=== PATIENT | male | born 1955 | race Caucasian/White ===

== ENCOUNTER → 2018-09-04 07:59 | Outpatient (CLI) | payer BC, SELFPAY ==
--- NOTE | 2018-09-04 08:01 | XR_ITS ---
XR chest 2V HISTORY: ITS.REASON: cough ORDERING PHYSICIAN: Cristian Oliva PATIENT AGE: 62 years COMPARISON: None FINDINGS: The cardiomediastinal silhouette and pulmonary vascularity are within normal limits. Increased markings in the lingula and right lower lobe consistent with atelectasis and/or infiltrate Kyphosis of the thoracic spine with mild wedging involving T8, T9, and T10 which appears chronic.. IMPRESSION: Atelectasis or infiltrate within the lingula and right lower lobe
== END ==
PROVIDERS: PCP Nurse Practitioner Family; Visit Provider Nurse Practitioner Family
DX: R05 Cough (principal)
CPT/HCPCS: 71046

== ENCOUNTER 2022-09-01 09:11 | Emergency (ER) | payer MEDICARE, SELFPAY ==
--- NOTE | 2022-09-01 09:21 | EXP.UTC ---
Discharge Plan Disposition Patient Disposition: Home, Self-Care Condition: Good Prescriptions Prescriptions: New benzonatate [benzonatate] 100 mg capsule 100 mg PO TIDP PRN (Reason: Cough) Qty: 30 0RF azithromycin [Zithromax] 250 mg tablet 250 mg PO UD DOSE PK Qty: 6 0RF Rx Instructions: Take two (2) tablets today, then one (1) tablet days #2 thru #5 methylprednisolone 4 mg Tablets,Dose Pack 4 mg PO DIRECTED Qty: 21 0RF No Action losartan 25 mg tablet 12.5 mg PO ONCE meloxicam 7.5 mg tablet 7.5 mg PO ONCE timolol 0.5 % drops 1 drp OPHTHALMIC BID latanoprost 0.005 % drops 1 drp OPHTHALMIC ONCE levocetirizine 5 mg tablet 5 mg PO QHS tamsulosin [Flomax] 0.4 mg capsule 0.4 mg PO DAILY montelukast 10 mg tablet 10 mg PO QPM nystatin-triamcinolone 100,000-0.1 unit/g-% cream 1 applic TOPICAL BID Referrals Follow up/Referrals: Triston Avila [Primary Care Provider] - See instructions Activity Restrictions/Add. Instructions Additional Instructions/Restrictions: Drink plenty of fluids. Take tylenol or ibuprofen for pain or fever. Take the medications as directed. Follow up with your regular doctor. GO TO THE ER FOR ANY WORSENING SYMPTOMS Clinical Impressions Clinical Impression: Sinusitis, Bronchitis, Acute viral syndrome Instructions Patient Instructions: DI for Sinusitis, DI for Viral Syndrome Discharge ED Provider: Aubrey Bell [facility] [place] General Stated complaint: Flu exposure, cough, sinus headache, fever Time Seen by Provider: 09/01/22 09:21 History of Present Illness Provider Complaint: He states that for the past 2 days he has had sinus congestion, sinus drainage, cough, fever, and body aches. Related Data Home Medications Medication Instructions Recorded Confirmed latanoprost 0.005 % eye drops 1 drp ophthalmic (eye) ONCE 12/13/17 04/12/19 levocetirizine 5 mg tablet 5 mg PO QHS 12/13/17 04/12/19 losartan 25 mg tablet 12.5 mg PO ONCE 12/13/17 04/12/19 meloxicam 7.5 mg tablet 7.5 mg PO ONCE 12/13/17 04/12/19 timolol 0.5 % eye drops 1 drp ophthalmic (eye) BID 12/13/17 04/12/19 montelukast 10 mg tablet 10 mg PO QPM 09/03/18 04/12/19 tamsulosin 0.4 mg capsule (Flomax) 0.4 mg PO DAILY 09/03/18 04/12/19 nystatin-triamcinolone 100,000 1 applic topical BID 04/12/19 04/12/19 unit/g-0.1 % topical cream Previous Rx's Medication Instructions Recorded azithromycin 250 mg tablet 250 mg PO UD DOSE PK #6 tabs 09/01/22 (Zithromax) benzonatate 100 mg capsule 100 mg PO TIDP PRN Cough #30 caps 09/01/22 methylprednisolone 4 mg tablets in 4 mg PO DIRECTED #21 tabs 09/01/22 a dose pack Allergies Allergy/AdvReac Type Severity Reaction Status Date / Time No Known Allergies Allergy Verified 09/01/22 09:41 [facility] Disclaimer: The information contained in this section may have been updated after the patient was seen, as this information can be updated by other users. Social History Smoking Status: Never smoker alcohol intake: never substance use type: denies use current occupational status: employed Travel in the last 8 weeks: Inside the [place] household members: family housing: house ROS Obtained: Yes All systems reviewed & no additional complaints except as documented Constitutional Constitutional: Reports chills and Reports fever(s) Eyes Eyes: Denies eye discharge ENT Ears, Nose, Mouth, and Throat: Reports as per HPI Cardiovascular Cardiovascular: Denies chest pain Respiratory Respiratory: Denies shortness of breath, Reports chest congestion, Reports cough, Denies stridor and Denies wheezing Gastrointestinal Gastrointestingal: Reports nausea; Denies abdominal pain, constipation, cramping, diarrhea or vomiting Musculoskeletal Musculoskeletal: Denies arthralgias Integumentary/Breasts Skin/Breast: Denies rash Chey
[2022-09-01 09:39] VITALS: BP 114/73; PULSE 76; RESP 16; TEMP 37.4; O2SAT 96; BMI 38.3
[2022-09-01 09:47] LABS: UTC Influenza A Antigen Negative (Negative); UTC Influenza B Antigen Negative (Negative)
[2022-09-01 10:01] VITALS: BP 114/73; PULSE 76; RESP 16; TEMP 37.4
== END 2022-09-01 10:07 | disposition home or self-care (01) ==
PROVIDERS: Emergency Provider Nurse Practitioner Family; PCP Family Medicine
DX: J40 Bronchitis, not specified as acute or chronic (principal); J32.9 Chronic sinusitis, unspecified
CPT/HCPCS: 87804; 99212; C9803; G0463; U0003; U0005

== ENCOUNTER 2023-02-20 15:44 | Emergency (ER) | payer MEDICARE, BC, SELFPAY ==
[2023-02-20 15:55] VITALS: BP 130/79; PULSE 80; RESP 18; TEMP 36.8; O2SAT 98; BMI 38.9
--- NOTE | 2023-02-20 16:27 | EXP.UTC ---
Discharge Plan Disposition Patient Disposition: Home, Self-Care Condition: Good Prescriptions Prescriptions: New triamcinolone acetonide 0.5 % cream 1 applic topical BID Qty: 15 0RF No Action losartan 25 mg tablet 12.5 mg PO ONCE meloxicam 7.5 mg tablet 7.5 mg PO ONCE timolol 0.5 % drops 1 drp OPHTHALMIC BID latanoprost 0.005 % drops 1 drp OPHTHALMIC ONCE levocetirizine 5 mg tablet 5 mg PO QHS tamsulosin [Flomax] 0.4 mg capsule 0.4 mg PO DAILY montelukast 10 mg tablet 10 mg PO QPM nystatin-triamcinolone 100,000-0.1 unit/g-% cream 1 applic TOPICAL BID benzonatate [benzonatate] 100 mg capsule 100 mg PO TIDP PRN (Reason: Cough) Qty: 30 0RF azithromycin [Zithromax] 250 mg tablet 250 mg PO UD DOSE PK Qty: 6 0RF Rx Instructions: Take two (2) tablets today, then one (1) tablet days #2 thru #5 methylprednisolone 4 mg Tablets,Dose Pack 4 mg PO DIRECTED Qty: 21 0RF Referrals Follow up/Referrals: Triston Avila [Primary Care Provider] - See instructions Clinical Impressions Clinical Impression: Contact dermatitis due to poison nayeli Instructions Patient Instructions: DI for Poison Nayeli Allergy Discharge ED Provider: Hazel ([facility])[place] [facility] [place] General Stated complaint: rash on lower legs and arms Mode of Arrival: Ambulatory Source of Information: Patient Limitations: No Limitations Time Seen by Provider: 02/20/23 16:27 Description of Symptoms (Recalled from Triage Doc. by RN): PATIENT C/O POISON NAYELI ALL OVER X 3 DAYS HEENT Symptoms (Recalled from RN notes): No Resp Symptoms (Recalled from RN notes): No Skin Symptoms (Recalled from RN notes): Yes MS Symptoms (Recalled from RN notes): No Functional Status (Recalled from RN notes): WNL History of Present Illness Provider Complaint: 67 yr old male presents for poison nayeli on jone lower legs,neck and arms for 3 days Related Data Home Medications Medication Instructions Recorded Confirmed latanoprost 0.005 % eye drops 1 drp ophthalmic (eye) ONCE 12/13/17 04/12/19 levocetirizine 5 mg tablet 5 mg PO QHS 12/13/17 04/12/19 losartan 25 mg tablet 12.5 mg PO ONCE 12/13/17 04/12/19 meloxicam 7.5 mg tablet 7.5 mg PO ONCE 12/13/17 04/12/19 timolol 0.5 % eye drops 1 drp ophthalmic (eye) BID 12/13/17 04/12/19 montelukast 10 mg tablet 10 mg PO QPM 09/03/18 04/12/19 tamsulosin 0.4 mg capsule (Flomax) 0.4 mg PO DAILY 09/03/18 04/12/19 nystatin-triamcinolone 100,000 1 applic topical BID 04/12/19 04/12/19 unit/g-0.1 % topical cream Previous Rx's Medication Instructions Recorded azithromycin 250 mg tablet 250 mg PO UD DOSE PK #6 tabs 09/01/22 (Zithromax) benzonatate 100 mg capsule 100 mg PO TIDP PRN Cough #30 caps 09/01/22 methylprednisolone 4 mg tablets in 4 mg PO DIRECTED #21 tabs 09/01/22 a dose pack triamcinolone acetonide 0.5 % 1 applic topical BID #15 grams 02/20/23 topical cream Allergies Allergy/AdvReac Type Severity Reaction Status Date / Time No Known Allergies Allergy Verified 09/01/22 09:41 Worker's Comp Is this a Worker's Comp case?: No [facility] Disclaimer: The information contained in this section may have been updated after the patient was seen, as this information can be updated by other users. 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 , [place] [employer]) Hypertension Surgical History , [place] [employer]) History of tonsillectomy Total knee replacement status Social History , [place] [employer]) Smoking Status: Never smoker alcohol intake: never substance use type: denies use current occupational status: employed Travel in the last 8 weeks: [place] the [place]) household members: family housing: house ROS Obtained: Yes All systems reviewed & no additional complaints except as documented Constitutional Constitution
[2023-02-20 16:40] VITALS: BP 130/79; PULSE 80; RESP 18; TEMP 36.8; O2SAT 98
== END 2023-02-20 16:45 | disposition home or self-care (01) ==
PROVIDERS: Emergency Provider Nurse Practitioner Family; PCP Family Medicine
DX: L23.7 Allergic contact dermatitis due to plants, except food (principal); I10 Essential (primary) hypertension; W60.XXXA Contact with nonvenomous plant thorns and spines and sharp leaves, initial encounter
CPT/HCPCS: 96372; 99212; 99214; G0463

== ENCOUNTER 2023-08-02 08:18 | Emergency (ER) | payer MEDICARE, BC, SELFPAY ==
[2023-08-02 08:35] VITALS: BP 149/81; PULSE 76; RESP 19; TEMP 36.7; O2SAT 96; BMI 36.4
[2023-08-02 08:58] VITALS: BP 149/81; PULSE 76; RESP 19; TEMP 36.7; O2SAT 96
--- NOTE | 2023-08-02 09:11 | EXP.UTC ---
Discharge Plan Disposition Patient Disposition: Home, Self-Care Condition: Good Prescriptions Prescriptions: New amoxicillin-pot clavulanate 875-125 mg Tablet 1 tab PO Q12H Qty: 20 0RF guaifenesin [Mucinex] 600 mg tablet extended release 12hr 600 mg PO BID PRN (Reason: cough/congestion) Qty: 20 0RF No Action meloxicam 7.5 mg tablet 7.5 mg PO ONCE timolol 0.5 % drops 1 drp OPHTHALMIC BID latanoprost 0.005 % drops 1 drp OPHTHALMIC ONCE levocetirizine 5 mg tablet 5 mg PO QHS tamsulosin [Flomax] 0.4 mg capsule 0.4 mg PO DAILY telmisartan-hydrochlorothiazid 80-25 mg tablet 1 tab PO DAILY Patient Comments: TAKE 1 TABLET BY MOUTH ONCE DAILY ropinirole 2 mg tablet extended release 24 hr 2 mg PO HS Patient Comments: TAKE 2 TABLETS BY MOUTH AT BEDTIME FOR 7 DAYS, THEN 3 AT BEDTIME FOR 7 DAYS, THEN 4 AT BEDTIME Referrals Follow up/Referrals: Triston Avila [Primary Care Provider] - See instructions Activity Restrictions/Add. Instructions Additional Instructions/Restrictions: *Monitor Temp, Over the counter Motrin or Tylenol as directed/as needed Tylenol every 4 hours and Motrin every 6 hours (as long as your family doctor has told you that you can take it) for fever or pain. and straight to ER if unable to lower temp less than 101.0 after medication given *Warm salt water gargles may help to soothe the throat *Throat Lozenges? *Warm fluids like tea with honey may help to soothe the throat? *Sleep elevated *Humidifier/Vaporizer Follow up IMMEDIATELY for new or worsening symptoms or no Noticeable improvement over the next 48-72 hours. 911 for difficulty breathing or swallowing Clinical Impressions Clinical Impression: Sinusitis Qualifiers: Sinusitis location: unspecified location Chronicity: unspecified Qualified Code(s): J32.9 - Chronic sinusitis, unspecified Instructions Patient Instructions: DI for Sinusitis, Sinusitis Discharge ED Provider: Zuleyka Pack [facility] General Stated complaint: POSSIBLE SINUS INFECTION Mode of Arrival: Ambulatory Source of Information: Patient Limitations: No Limitations Time Seen by Provider: 08/02/23 09:18 Description of Symptoms (Recalled from Triage Doc. by RN): PATIENT C/O COUGH X 3 WEEKS, SINUS DRAINAGE AND SORE THROAT X 2-3 DAYS HEENT Symptoms (Recalled from RN notes): Yes Resp Symptoms (Recalled from RN notes): Yes Skin Symptoms (Recalled from RN notes): No MS Symptoms (Recalled from RN notes): No Functional Status (Recalled from RN notes): WNL History of Present Illness Provider Complaint: Patient states that he has been having a dry cough with nasal drainage on and off for about 3 weeks but now his mucous has got thick and yellowish green color feels like he may have a bad sinus infection Related Data Home Medications Medication Instructions Recorded Confirmed latanoprost 0.005 % eye drops 1 drp ophthalmic (eye) ONCE 12/13/17 08/02/23 levocetirizine 5 mg tablet 5 mg PO QHS 12/13/17 08/02/23 meloxicam 7.5 mg tablet 7.5 mg PO ONCE 12/13/17 08/02/23 timolol 0.5 % eye drops 1 drp ophthalmic (eye) BID 12/13/17 08/02/23 tamsulosin 0.4 mg capsule (Flomax) 0.4 mg PO DAILY 09/03/18 08/02/23 ropinirole 2 mg tablet,extended 2 mg PO HS 08/02/23 08/02/23 release 24 hr telmisartan 80 1 tab PO DAILY 08/02/23 08/02/23 mg-hydrochlorothiazide 25 mg tablet Previous Rx's Medication Instructions Recorded amoxicillin 875 mg-potassium 1 tab PO Q12H #20 tabs 08/02/23 clavulanate 125 mg tablet guaifenesin 600 mg tablet, 600 mg PO BID PRN cough/congestion 08/02/23 extended release 12 hr (Mucinex) #20 tabs Allergies Allergy/AdvReac Type Severity Reaction Status Date / Time No Known Allergies Allergy Verified 09/01/22 09:41 Worker's Comp Is this a Worker's Comp case?: No [facility] Disclaimer: The information contained in this section may have been updated
== END 2023-08-02 09:35 | disposition home or self-care (01) ==
PROVIDERS: Emergency Provider Nurse Practitioner; PCP Family Medicine
DX: J01.90 Acute sinusitis, unspecified (principal); R05.9 Cough, unspecified; R09.81 Nasal congestion; I10 Essential (primary) hypertension
CPT/HCPCS: 99212; 99214; G0463

== ENCOUNTER 2023-11-10 08:44 | Emergency (ER) | payer MEDICARE, BC, SELFPAY ==
[2023-11-10 09:00] VITALS: BP 134/79; PULSE 65; RESP 18; TEMP 36.9; O2SAT 96; BMI 35.5
[2023-11-10 09:16] VITALS: BMI 35.5
--- NOTE | 2023-11-10 09:18 | ED_ITS ---
Discharge Plan Disposition Patient Disposition: Home, Self-Care Condition: Good Prescriptions Prescriptions: New methylprednisolone 4 mg Tablets,Dose Pack 4 mg PO DIRECTED 6 Days Qty: 21 0RF Rx Instructions: Take 1 pack as directed for 6 days azithromycin [Zithromax] 250 mg tablet 250 mg PO UD DOSE PK Qty: 6 0RF Rx Instructions: Take two (2) tablets today, then one (1) tablet days #2 thru #5 benzonatate [benzonatate] 100 mg capsule 100 mg PO TIDP PRN (Reason: Cough) Qty: 30 0RF guaifenesin [Mucinex] 600 mg tablet extended release 12hr 600 - 1,200 mg PO BIDP PRN (Reason: Congestion) Qty: 30 0RF No Action meloxicam 7.5 mg tablet 7.5 mg PO ONCE latanoprost 0.005 % drops 1 drp OPHTHALMIC ONCE levocetirizine 5 mg tablet 5 mg PO QHS tamsulosin [Flomax] 0.4 mg capsule 0.4 mg PO DAILY telmisartan-hydrochlorothiazid 80-25 mg tablet 1 tab PO DAILY Patient Comments: TAKE 1 TABLET BY MOUTH ONCE DAILY ropinirole 2 mg tablet extended release 24 hr 8 mg PO HS Patient Comments: TAKE 2 TABLETS BY MOUTH AT BEDTIME FOR 7 DAYS, THEN 3 AT BEDTIME FOR 7 DAYS, THEN 4 AT BEDTIME Referrals Follow up/Referrals: Triston Avila [Primary Care Provider] - See instructions Activity Restrictions/Add. Instructions Additional Instructions/Restrictions: Drink plenty of fluids. Take tylenol or ibuprofen for pain or fever. Take the medications as directed. Follow up with your regular doctor. GO TO THE ER FOR ANY WORSENING SYMPTOMS We will call you with the results of your rapid covid-19/influenza swab with it's complete in a couple of hours. Clinical Impressions Clinical Impression: Sinusitis, Acute viral syndrome, Exposure to 2019 novel coronavirus Instructions Patient Instructions: Sinusitis, DI for Sinusitis Discharge ED Provider: Aubrey Bell [facility] [place] General Stated complaint: congestion, sore throat Time Seen by Provider: 11/10/23 09:18 History of Present Illness Provider Complaint: He states that for the past 2 days he has had sinus congestion, cough, sore throat, and malaise. Related Data Home Medications Medication Instructions Recorded Confirmed latanoprost 0.005 % eye drops 1 drp ophthalmic (eye) ONCE 12/13/17 08/02/23 levocetirizine 5 mg tablet 5 mg PO QHS 12/13/17 08/02/23 meloxicam 7.5 mg tablet 7.5 mg PO ONCE 12/13/17 08/02/23 tamsulosin 0.4 mg capsule (Flomax) 0.4 mg PO DAILY 09/03/18 08/02/23 ropinirole 2 mg tablet,extended 8 mg PO HS 08/02/23 08/02/23 release 24 hr telmisartan 80 1 tab PO DAILY 08/02/23 08/02/23 mg-hydrochlorothiazide 25 mg tablet Previous Rx's Medication Instructions Recorded azithromycin 250 mg tablet 250 mg PO UD DOSE PK #6 tabs 11/10/23 (Zithromax) benzonatate 100 mg capsule 100 mg PO TIDP PRN Cough #30 caps 11/10/23 guaifenesin 600 mg tablet, 600 - 1,200 mg PO BIDP PRN 11/10/23 extended release 12 hr (Mucinex) Congestion #30 tabs methylprednisolone 4 mg tablets in 4 mg PO DIRECTED 6 days #21 tabs 11/10/23 a dose pack Allergies Allergy/AdvReac Type Severity Reaction Status Date / Time No Known Allergies Allergy Verified 11/10/23 09:20 [facility] Disclaimer: The information contained in this section may have been updated after the patient was seen, as this information can be updated by other users. 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 (Reviewed 02/20/23 @ 16:32 by Cristian Oliva ([facility] [place] [place]) Hypertension Surgical History (Reviewed 02/20/23 @ 16:32 by Cristian Oliva ([facility] [place]) History of tonsillectomy Total knee replacement status Social History Smoking Status: Never smoker alcohol intake: never substance use type: denies use current occupational status: employed Travel in the last 8 weeks: [place] the [place] ([place]) household members: family housing: house ROS Obtained: Yes All systems reviewed & no additional complaints except as documented Constitutional Constitutional: Reports poor appetite Eyes Eyes: Reports system reviewed and no additional complaints, except as documented ENT Ears, Nose, Mouth, and Throat: Reports as per HPI Cardiovascular Cardiovascular: Reports system reviewed and no additional complaints, except as documented and Denies chest pain Respiratory Respiratory: Denies shortness of breath, Denies chest congestion, Reports cough, Denies stridor and Denies wheezing Gastrointestinal Gastrointestingal: Reports system reviewed and no additional complaints, except as documented; Denies abdominal pain, diarrhea or vomiting Musculoskeletal Musculoskeletal: Reports system reviewed and no additional complaints, except as documented and Denies arthralgias Integumentary/Breasts Skin/Breast: Reports system reviewed and no additional complaints, except as d ocumented and Denies rash Neurologic Neurologic: Denies paresthesias Allergic/Immunologic Allergic/Immunologic: Denies wheezing Physical Exam General General appearance: alert and in no apparent distress Eye Eye exam: Present normal appearance, PERRL and EOMI ENT ENT exam: Present mucous membranes moist and normal external ear exam Expanded ENT Exam External ear exam: Present normal external inspection TM/Canal exam: Bilateral TM: erythema and bulging Nose exam: Absent sinus tenderness Nasal speculum exam: Bilateral: normal Mouth exam: Present normal external inspection; Absent drooling Teeth exam: Present normal inspection Throat exam: Present tonsillar erythema and tonsillomegaly Neck Neck exam: Present normal inspection, full ROM and trachea midline; Absent tenderness, lymphadenopathy or thyromegaly Chest Chest inspection: Present normal inspection and symmetric chest wall rise; Absent tenderness or rash Respiratory Respiratory exam: Present normal lung sounds bilaterally; Absent respiratory distress, wheezes, stridor or accessory muscle use Cardiovascular Cardiovascular exam: Present regular rate, normal rhythm and normal heart sounds Abdominal Exam Abdominal exam: Present soft; Absent distention, tenderness, guarding, rebound or rigidity Extremities Exam Extremities exam: Present normal inspection, full ROM and normal capillary refill; Absent tenderness or calf tenderness Back Exam Back exam: Present normal inspection and full ROM; Absent tenderness Neurological Exam Neurological exam: Present alert and oriented X3 Psychiatric Psychiatric exam: Present normal affect and normal mood Skin Skin exam: Present warm, dry, intact and normal color Lymphatic Lymphatic Findings: no adenopathy Medical Decision Making Medical Records Medical records reviewed: No I reviewed the patient's medical records. Michele Inquiry Pt receiving controlled substance: No Lab Data Lab results reviewed: Yes I reviewed the patient's lab results. Orders (Tests/Meds): ORDERS Category Date Time Status Rapid PCR Covid and Flu A/B Stat Lab 11/10/23 09:16 Ordered
[2023-11-10 09:27] LABS: Coronavirus 19, PCR Not Detected (NotDetected); Influenza A, PCR Not Detected (NotDetected); Influenza B, PCR Not Detected (NotDetected)
[2023-11-10 09:34] LABS: UTC Influenza A Antigen Negative (Negative); UTC Strep Screen (Rapid) Negative (Negative)
[2023-11-10 09:35] LABS: UTC Influenza B Antigen Negative (Negative)
[2023-11-10 09:58] VITALS: BP 134/79; PULSE 65; RESP 18; TEMP 36.9; O2SAT 96
== END 2023-11-10 10:03 | disposition home or self-care (01) ==
PROVIDERS: Emergency Provider Nurse Practitioner Family; PCP Family Medicine
DX: J01.90 Acute sinusitis, unspecified (principal); R05.9 Cough, unspecified; R07.0 Pain in throat; R09.81 Nasal congestion; R53.81 Other malaise; Z20.822 Contact with and (suspected) exposure to COVID-19; I10 Essential (primary) hypertension
CPT/HCPCS: 87636; 87804; 87880; 99212; 99214; G0463

== ENCOUNTER 2024-04-17 20:34 | Emergency (ER) | payer MEDICARE, BC, SELFPAY ==
[2024-04-17 20:36] VITALS: BP 140/70; PULSE 68; RESP 16; TEMP 36.6; O2SAT 97; BMI 36.9
--- NOTE | 2024-04-17 20:53 | ED_ITS ---
Discharge Plan Disposition Patient Disposition: Home, Self-Care Prescriptions Prescriptions: New sulfamethoxazole-trimethoprim [Bactrim DS] 800-160 mg tablet 1 tab PO BID 7 Days Qty: 14 0RF No Action meloxicam 7.5 mg tablet 7.5 mg PO ONCE latanoprost 0.005 % drops 1 drp OPHTHALMIC ONCE levocetirizine 5 mg tablet 5 mg PO QHS tamsulosin [Flomax] 0.4 mg capsule 0.4 mg PO DAILY methylprednisolone 4 mg Tablets,Dose Pack 4 mg PO DIRECTED 6 Days Qty: 21 0RF Rx Instructions: Take 1 pack as directed for 6 days azithromycin [Zithromax] 250 mg tablet 250 mg PO UD DOSE PK Qty: 6 0RF Rx Instructions: Take two (2) tablets today, then one (1) tablet days #2 thru #5 benzonatate [benzonatate] 100 mg capsule 100 mg PO TIDP PRN (Reason: Cough) Qty: 30 0RF guaifenesin [Mucinex] 600 mg tablet extended release 12hr 600 - 1,200 mg PO BIDP PRN (Reason: Congestion) Qty: 30 0RF telmisartan-hydrochlorothiazid 80-25 mg tablet 1 tab PO DAILY Patient Comments: TAKE 1 TABLET BY MOUTH ONCE DAILY ropinirole 2 mg tablet extended release 24 hr 8 mg PO HS Patient Comments: TAKE 2 TABLETS BY MOUTH AT BEDTIME FOR 7 DAYS, THEN 3 AT BEDTIME FOR 7 DAYS, THEN 4 AT BEDTIME Referrals Follow up/Referrals: Triston Avila [Primary Care Provider] - See instructions Activity Restrictions/Add. Instructions Additional Instructions/Restrictions: At this time it was felt you are safe to be discharged home. If new or worsening symptoms please do not hesitate to return the emergency department. Please take your antibiotics as prescribed. As discussed if the redness goes all the way around your eyes, if you get pain behind your eye please present here for evaluation. Also remember that this may be early shingles however currently that is more consistent with the bacterial infection on her skin. If over the next few days you get worsening crusting lesions that look like scabs that are very painful over the right side of your head please present here or to your family doctor for continued evaluation. Clinical Impressions Clinical Impression: Impetigo Print Language Print Language: Zimbabwean Discharge ED Provider: Anurag Mobley General Adult HPI General Stated complaint: rash forehead and back of head Time Seen by Provider: 04/17/24 20:37 History of Present Illness HPI narrative: Patient is a 68-year-old male who presents emergency department for evaluation of rash over the right side of his head. Onset was acute. He has developed weeping areas over his right pentecostalism and his posterior parietal occipital scalp. No vision changes, no retro-ocular pain, no circumferential swelling around his eyes. The rash is not painful. Due to concerns that is approaching near his right eye he presents here for continued evaluation. Related Data Home Medications ?Medication ?Instructions ?Recorded ?Confirmed latanoprost 0.005 % eye drops 1 drp ophthalmic (eye) ONCE 12/13/17 08/02/23 levocetirizine 5 mg tablet 5 mg PO QHS 12/13/17 08/02/23 meloxicam 7.5 mg tablet 7.5 mg PO ONCE 12/13/17 08/02/23 tamsulosin 0.4 mg capsule (Flomax) 0.4 mg PO DAILY 09/03/18 08/02/23 ropinirole 2 mg tablet,extended 8 mg PO HS 08/02/23 08/02/23 release 24 hr telmisartan 80 1 tab PO DAILY 08/02/23 08/02/23 mg-hydrochlorothiazide 25 mg tablet Previous Rx's ?Medication ?Instructions ?Recorded azithromycin 250 mg tablet 250 mg PO UD DOSE PK #6 tabs 11/10/23 (Zithromax) benzonatate 100 mg capsule 100 mg PO TIDP PRN Cough #30 caps 11/10/23 guaifenesin 600 mg tablet, 600 - 1,200 mg (1 - 2 x 600 mg) PO 11/10/23 extended release 12 hr (Mucinex) BIDP PRN Congestion #30 tabs methylprednisolone 4 mg tablets in 4 mg PO DIRECTED 6 days #21 tabs 11/10/23 a dose pack sulfamethoxazole 800 1 tab PO BID impetigo 7 days #14 04/17/24 mg-trimethoprim 160 mg tablet tabs (Bactrim DS) Allergies Allergy/AdvReac Type Severity Reaction Status Date / Time No Known Allergies Allergy Verified 11/10/23 09:[address] [facility] Disclaimer: The information contained in this section may have been updated after the patient was seen, as this information can be updated by other users. 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 (Reviewed 02/20/23 @ 16:[address] 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 TOE PULLER) History of tonsillectomy Total knee replacement status Social History Smoking Status: Never smoker alcohol intake: never substance use type: denies use current occupational status: employed Travel in the last 8 weeks: [place] the [place] household members: family housing: house ROS Obtained: Yes Systems reviewed as appropriate & no additional complaints except as documented Physical Exam General General appearance: alert and in no apparent distress Head Head exam: atraumatic and normocephalic Eye Eye exam: Present PERRL, EOMI and other (No exophthalmos) ENT ENT exam: Present mucous membranes moist Neck Neck exam: Present normal inspection Chest Chest inspection: Present normal inspection and symmetric chest wall rise Respiratory Respiratory exam: Absent respiratory distress Cardiovascular Cardiovascular exam: Present regular rate and normal rhythm Extremities Exam Extremities exam: Present normal inspection Neurological Exam Neurological exam: Present alert and CN II-XII intact; Absent motor sensory deficit Psychiatric Psychiatric exam: Present normal affect Skin Skin exam: Present warm, dry and rash (Erythematous yellow crusty weeping rash over his right pentecostalism, no circumferential area around the eye or periorbital area. There is a solitary lesion that is similar with yellow crust over his posterior scalp.) Medical Decision Making Michele Inquiry Pt receiving controlled substance: No Orders (Tests/Meds): ED MEDICATIONS Generic Name Dose Route Start Last Admin Trade Name Freq PRN Reason Stop Dose Admin Mupirocin 1 gm 04/17/24 21:00 Mupirocin 2% Ointment 22gm Tube TP 05/17/24 20:59 BID RALPH Discontinued Medications Generic Name Dose Route Start Last Admin Trade Name Freq PRN Reason Stop Dose Admin Trimethoprim/Sulfamethoxazole 1 each 04/17/24 20:47 Sulfa/Trimethoprim 1 Tablet PO 04/17/24 20:48 ONCE ONE Medical Decision Narrative: In summary patient is a 68-year-old male past medical history described above who presents emergency department for evaluation of rash. Patient is hemodynamically stable nontoxic-appearing but arrival, afebrile. Clinically patient has impetigo however it may be that he has a very early shingles however given no pain makes this much less likely. No concern for periorbital cellulitis or orbital cellulitis at this time based on history and physical exam. Given this and multifocal involvement patient will be given topical mupirocin and Bactrim for which the first dose will be administered here. Patient was given multiple return precautions and verbalized understanding. Critical Care Critical Care Time Critical Care Time: No
[2024-04-17] MEDS: SULFA/TRIMETHOPRIM 1 TABLET 1 EACH PO (20:57)
[2024-04-17] MEDS: MUPIROCIN 2% OINTMENT 22GM TUBE TP (20:57)
[2024-04-17 21:03] VITALS: BP 140/70; PULSE 68; RESP 16; TEMP 36.6; O2SAT 97
== END 2024-04-17 21:05 | disposition home or self-care (01) ==
LOC: ER 21:01
PROVIDERS: Emergency Provider Emergency Medicine; PCP Family Medicine
DX: L01.00 Impetigo, unspecified (principal)
CPT/HCPCS: 99283

== ENCOUNTER 2024-04-30 09:12 | Emergency (ER) | payer MEDICARE, BC, SELFPAY ==
[2024-04-30 09:20] VITALS: BP 138/76; PULSE 72; RESP 21; TEMP 36.9; O2SAT 97; BMI 36.2
--- NOTE | 2024-04-30 09:25 | EXP.UTC ---
Discharge Plan Disposition Patient Disposition: Home, Self-Care Condition: Good Prescriptions Prescriptions: New azithromycin [Zithromax] 250 mg tablet 250 mg PO UD DOSE PK Qty: 6 0RF Rx Instructions: Take two (2) tablets today, then one (1) tablet days #2 thru #5 benzonatate 100 mg capsule 100 mg PO TIDP PRN (Reason: Cough) Qty: 30 0RF No Action meloxicam 7.5 mg tablet 7.5 mg PO DAILY Patient Comments: TAKE 1 TABLET BY MOUTH ONCE DAILY tamsulosin 0.4 mg capsule 1 mg PO DAILY Patient Comments: TAKE 1 CAPSULE BY MOUTH ONCE DAILY AT NIGHT montelukast 10 mg tablet 10 mg PO DAILY Patient Comments: TAKE 1 TABLET BY MOUTH ONCE DAILY AT NIGHT timolol maleate 0.5 % drops 1 drp ophthalmic (eye) DAILY Patient Comments: INSTILL 1 DROP INTO EACH EYE ONCE DAILY IN THE MORNING telmisartan-hydrochlorothiazid 80-25 mg tablet 1 tab PO DAILY Patient Comments: TAKE 1 TABLET BY MOUTH ONCE DAILY levocetirizine 5 mg tablet 5 mg PO DAILY Patient Comments: TAKE 1 TABLET BY MOUTH ONCE DAILY ropinirole 8 mg tablet extended release 24 hr 8 mg PO DAILY Patient Comments: TAKE 1 TABLET BY MOUTH NIGHTLY Referrals Follow up/Referrals: Triston Avila [Primary Care Provider] - See instructions Activity Restrictions/Add. Instructions Additional Instructions/Restrictions: Drink plenty of fluids. Take tylenol or ibuprofen for pain or fever. Take the medications as directed. Follow up with your regular doctor. GO TO THE ER FOR ANY WORSENING SYMPTOMS Clinical Impressions Clinical Impression: Sinusitis, Acute viral syndrome Instructions Patient Instructions: DI for Sinusitis, Coronavirus Disease 2019, Preventing the Spread of Coronavirus Discharge Instructions Print Language Print Language: Czech Discharge ED Provider: Aubrey Bell [facility] [place] General Stated complaint: covid test Time Seen by Provider: 04/30/24 09:25 Related Data Home Medications ?Medication ?Instructions ?Recorded ?Confirmed levocetirizine 5 mg tablet 5 mg PO DAILY 04/30/24 04/30/24 meloxicam 7.5 mg tablet 7.5 mg PO DAILY 04/30/24 04/30/24 montelukast 10 mg tablet 10 mg PO DAILY 04/30/24 04/30/24 ropinirole 8 mg tablet,extended 8 mg PO DAILY 04/30/24 04/30/24 release 24 hr tamsulosin 0.4 mg capsule 1 mg PO DAILY 04/30/24 04/30/24 telmisartan 80 1 tab PO DAILY 04/30/24 04/30/24 mg-hydrochlorothiazide 25 mg tablet timolol maleate 0.5 % eye drops 1 drp ophthalmic (eye) DAILY 04/30/24 04/30/24 Previous Rx's ?Medication ?Instructions ?Recorded azithromycin 250 mg tablet 250 mg PO UD DOSE PK #6 tabs 04/30/24 (Zithromax) benzonatate 100 mg capsule 100 mg PO TIDP PRN Cough #30 caps 04/30/24 Allergies Allergy/AdvReac Type Severity Reaction Status Date / Time No Known Allergies Allergy Verified 11/10/23 09:20 [facility] Disclaimer: The information contained in this section may have been updated after the patient was seen, as this information can be updated by other users. 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) History of tonsillectomy Total knee replacement status Social History Smoking Status: Never smoker alcohol intake: never substance use type: denies use current occupational status: employed Travel in the last 8 weeks: [place] the [place]) household members: family housing: house ROS Obtained: Yes All systems reviewed & no additional complaints except as documented Constitutional Constitutional: Reports poor appetite Eyes Eyes: Reports system reviewed and no additional complaints, except as documented ENT Ears, Nose, Mouth, and Throat: Reports as per HPI Cardiovascular Cardiovascular: Reports system reviewed and no additional complaints, except as documented and Denies chest pain Respiratory Respiratory: Denies shortness of breath, Denies chest congestion, Reports cough, Denies stridor and Denies wheezing Gastrointestinal Gastrointestingal: Reports system reviewed and no additional complaints, except as documented; Denies abdominal pain, diarrhea or vomiting Musculoskeletal Musculoskeletal: Reports system reviewed and no additional complaints, except as documented and Denies arthralgias Integumentary/Breasts Skin/Breast: Reports system reviewed and no additional complaints, except as documented and Denies rash Neurologic Neurologic: Denies paresthesias Allergic/Immunologic Allergic/Immunologic: Denies wheezing Physical Exam General General appearance: alert and in no apparent distress Eye Eye exam: Present normal appearance, PERRL and EOMI ENT ENT exam: Present mucous membranes moist and normal external ear exam Expanded ENT Exam External ear exam: Present normal external inspection TM/Canal exam: Bilateral TM: erythema and bulging Nose exam: Absent sinus tenderness Nasal speculum exam: Bilateral: normal Mouth exam: Present normal external inspection; Absent drooling Teeth exam: Present normal inspection Throat exam: Present tonsillar erythema and tonsillomegaly Neck Neck exam: Present normal inspection, full ROM and trachea midline; Absent tenderness, lymphadenopathy or thyromegaly Chest Chest inspection: Present normal inspection and symmetric chest wall rise; Absent tenderness or rash Respiratory Respiratory exam: Present normal lung sounds bilaterally; Absent respiratory distress, wheezes, stridor or accessory muscle use Cardiovascular Cardiovascular exam: Present regular rate, normal rhythm and normal heart sounds Abdominal Exam Abdominal exam: Present soft; Absent distention, tenderness, guarding, rebound or rigidity Extremities Exam Extremities exam: Present normal inspection, full ROM and normal capillary refill; Absent tenderness or calf tenderness Back Exam Back exam: Present normal inspection and full ROM; Absent tenderness Neurological Exam Neurological exam: Present alert and oriented X3 Psychiatric Psychiatric exam: Present normal affect and normal mood Skin Skin exam: Present warm, dry, intact and normal color Lymphatic Lymphatic Findings: no adenopathy Medical Decision Making Medical Records Medical records reviewed: No I reviewed the patient's medical records. Michele Inquiry Pt receiving controlled substance: No Lab Data Lab results reviewed: Yes I reviewed the patient's lab results.
[2024-04-30 09:32] LABS: Coronavirus 19, PCR Not Detected (NotDetected); Influenza A, PCR Not Detected (NotDetected); Influenza B, PCR Not Detected (NotDetected)
[2024-04-30 09:46] LABS: UTC Strep Screen (Rapid) Negative (Negative)
[2024-04-30 09:59] VITALS: BP 138/76; PULSE 72; RESP 21; TEMP 36.9; O2SAT 97
--- NOTE | 2024-04-30 11:39 | PC.NURSE ---
PATIENT NOTIFIED OF NEGATIVE COVID AND FLU RESULTS AT THIS TIME
== END 2024-04-30 10:02 | disposition home or self-care (01) ==
PROVIDERS: Emergency Provider Nurse Practitioner Family; PCP Family Medicine
DX: J01.90 Acute sinusitis, unspecified (principal); B34.9 Viral infection, unspecified
CPT/HCPCS: 87636; 87880; 99212; 99214; G0463

== ENCOUNTER 2024-09-03 16:30 | Emergency (ER) | payer MEDICARE, BC, SELFPAY ==
[2024-09-03 18:12] VITALS: BP 167/88; PULSE 73; RESP 18; TEMP 37.1; O2SAT 96; BMI 36.9
--- NOTE | 2024-09-03 18:15 | EXP.UTC ---
Discharge Plan Disposition Patient Disposition: Home, Self-Care Condition: Good Prescriptions Prescriptions: New benzonatate 100 mg capsule 100 mg PO TIDP PRN (Reason: Cough) Qty: 30 0RF amoxicillin-pot clavulanate 875-125 mg Tablet 1 tab PO Q12H Qty: 20 0RF methylprednisolone 4 mg Tablets,Dose Pack 4 mg PO DIRECTED 6 Days Qty: 21 0RF Rx Instructions: Take 1 pack as directed for 6 days No Action meloxicam 7.5 mg tablet 7.5 mg PO DAILY Patient Comments: TAKE 1 TABLET BY MOUTH ONCE DAILY tamsulosin 0.4 mg capsule 1 mg PO DAILY Patient Comments: TAKE 1 CAPSULE BY MOUTH ONCE DAILY AT NIGHT montelukast 10 mg tablet 10 mg PO DAILY Patient Comments: TAKE 1 TABLET BY MOUTH ONCE DAILY AT NIGHT timolol maleate 0.5 % drops 1 drp ophthalmic (eye) DAILY Patient Comments: INSTILL 1 DROP INTO EACH EYE ONCE DAILY IN THE MORNING telmisartan-hydrochlorothiazid 80-25 mg tablet 1 tab PO DAILY Patient Comments: TAKE 1 TABLET BY MOUTH ONCE DAILY levocetirizine 5 mg tablet 5 mg PO DAILY Patient Comments: TAKE 1 TABLET BY MOUTH ONCE DAILY ropinirole 8 mg tablet extended release 24 hr 8 mg PO DAILY Patient Comments: TAKE 1 TABLET BY MOUTH NIGHTLY azithromycin [Zithromax] 250 mg tablet 250 mg PO UD DOSE PK Qty: 6 0RF Rx Instructions: Take two (2) tablets today, then one (1) tablet days #2 thru #5 benzonatate 100 mg capsule 100 mg PO TIDP PRN (Reason: Cough) Qty: 30 0RF Referrals Follow up/Referrals: Triston Avila [Primary Care Provider] - See instructions Activity Restrictions/Add. Instructions Additional Instructions/Restrictions: Drink plenty of fluids. Take tylenol or ibuprofen for pain or fever. Take the medications as directed. Follow up with your regular doctor. GO TO THE ER FOR ANY WORSENING SYMPTOMS Clinical Impressions Clinical Impression: Sinusitis Instructions Patient Instructions: Sinusitis, DI for Sinusitis Print Language Print Language: Japanese Discharge ED Provider: Aubrey Bell [facility] [place] General Stated complaint: head congestion cough sore throat Mode of Arrival: Ambulatory Source of Information: Patient Time Seen by Provider: 09/03/24 18:14 Description of Symptoms (Recalled from Triage Doc. by RN): CONGESTION, COUGH, DRAINAGE HEENT Symptoms (Recalled from RN notes): Yes Resp Symptoms (Recalled from RN notes): Yes Skin Symptoms (Recalled from RN notes): No MS Symptoms (Recalled from RN notes): No Functional Status (Recalled from RN notes): WNL Related Data Home Medications ?Medication ?Instructions ?Recorded ?Confirmed levocetirizine 5 mg tablet 5 mg PO DAILY 04/30/24 04/30/24 meloxicam 7.5 mg tablet 7.5 mg PO DAILY 04/30/24 04/30/24 montelukast 10 mg tablet 10 mg PO DAILY 04/30/24 04/30/24 ropinirole 8 mg tablet,extended 8 mg PO DAILY 04/30/24 04/30/24 release 24 hr tamsulosin 0.4 mg capsule 1 mg PO DAILY 04/30/24 04/30/24 telmisartan 80 1 tab PO DAILY 04/30/24 04/30/24 mg-hydrochlorothiazide 25 mg tablet timolol maleate 0.5 % eye drops 1 drp ophthalmic (eye) DAILY 04/30/24 04/30/24 Previous Rx's ?Medication ?Instructions ?Recorded azithromycin 250 mg tablet 250 mg PO UD DOSE PK #6 tabs 04/30/24 (Zithromax) benzonatate 100 mg capsule 100 mg PO TIDP PRN Cough #30 caps 04/30/24 amoxicillin 875 mg-potassium 1 tab PO Q12H #20 tabs 09/03/24 clavulanate 125 mg tablet benzonatate 100 mg capsule 100 mg PO TIDP PRN Cough #30 caps 09/03/24 methylprednisolone 4 mg tablets in 4 mg PO DIRECTED 6 days #21 tabs 09/03/24 a dose pack Allergies Allergy/AdvReac Type Severity Reaction Status Date / Time No Known Allergies Allergy Verified 11/10/23 09:20 Worker's Comp Is this a Worker's Comp case?: No [facility] Disclaimer: The information contained in this section may have been updated after the patient was seen, as this information can be updated by other users. 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) History of tonsillectomy Total knee replacement status Social History Smoking Status: Never smoker alcohol intake: never substance use type: denies use current occupational status: employed Travel in the last 8 weeks: [place] the [place]) household members: family housing: house Have you lived/traveled outside US in past 30 days?: No Contact w/someone who lives/traveled outside US past 30 days?: No Exposure to someone with infectious disease in past 14 days?: No Do you have a fever (greater than 100.4 F or 38 C)?: No Have you tested positive for COVID-19: No Exposed to someone with COVID-19 in past 14 days?: No Do you have a sore throat?: Yes Do you have a cough?: Yes Do you have any weakness?: No Do you have any diarrhea?: No Are you experiencing any unusual bleeding?: No Do you have any muscle aches/pain?: No Do you have any abdominal pain?: No Are you experiencing loss of taste or smell?: No ROS Obtained: Yes All systems reviewed & no additional complaints except as documented Constitutional Constitutional: Reports poor appetite Eyes Eyes: Reports system reviewed and no additional complaints, except as documented ENT Ears, Nose, Mouth, and Throat: Reports as per HPI Cardiovascular Cardiovascular: Reports system reviewed and no additional complaints, except as documented and Denies chest pain Respiratory Respiratory: Denies shortness of breath, Denies chest congestion, Reports cough, Denies stridor and Denies wheezing Gastrointestinal Gastrointestingal: Reports system reviewed and no additional complaints, except as documented; Denies abdominal pain, diarrhea or vomiting Musculoskeletal Musculoskeletal: Reports system reviewed and no additional complaints, except as documented and Denies arthralgias Integumentary/Breasts Skin/Breast: Reports system reviewed and no additional complaints, except as documented and Denies rash Neurologic Neurologic: Denies paresthesias Allergic/Immunologic Allergic/Immunologic: Denies wheezing Physical Exam General General appearance: alert and in no apparent distress Eye Eye exam: Present normal appearance, PERRL and EOMI ENT ENT exam: Present mucous membranes moist and normal external ear exam Expanded ENT Exam External ear exam: Present normal external inspection TM/Canal exam: Bilateral TM: erythema and bulging Nose exam: Absent sinus tenderness Nasal speculum exam: Bilateral: normal Mouth exam: Present normal external inspection; Absent drooling Teeth exam: Present normal inspection Throat exam: Present tonsillar erythema and tonsillomegaly Neck Neck exam: Present normal inspection, full ROM and trachea midline; Absent tenderness, lymphadenopathy or thyromegaly Chest Chest inspection: Present normal inspection and symmetric chest wall rise; Absent tenderness or rash Respiratory Respiratory exam: Present normal lung sounds bilaterally; Absent respiratory distress, wheezes, stridor or accessory muscle use Cardiovascular Cardiovascular exam: Present regular rate, normal rhythm and normal heart sounds Abdominal Exam Abdominal exam: Present soft; Absent distention, tenderness, guarding, rebound or rigidity Extremities Exam Extremities exam: Present normal inspection, full ROM and normal capillary refill; Absent tenderness or calf tenderness Back Exam Back exam: Present normal inspection and full ROM; Absent tenderness Neurological Exam Neurological exam: Present alert and oriented X3 Psychiatric Psychiatric exam: Present normal affect and normal mood Skin Skin exam: Present warm, dry, intact and normal color Lymphatic Lymphatic Findings: no adenopathy Medical Decision Making Medical Records Medical records reviewed: No I reviewed the patient's medical records. Screening: Per USPSTF and CDC recommendations, given the prevalence of disease in our region, it is our hospital?s policy to screen for HIV and viral Hepatitis for all patients aged 18 and over and those with ongoing risk factors. Michele Inquiry Pt receiving controlled substance: No Vital Signs: 09/03/24 18:12 Temperature 98.7 F Temperature Source Oral Pulse Rate [Left Brachial] 73 Respiratory Rate 18 Blood Pressure [Left Arm] 167/88 H Blood Pressure Mean [Left Arm] 114 02 Sat by Pulse Oximetry 96 Lab Data Lab results reviewed: Yes I reviewed the patient's lab results.
[2024-09-03 18:52] VITALS: BP 167/88; PULSE 73; RESP 18; TEMP 37.1
== END 2024-09-03 18:53 | disposition home or self-care (01) ==
PROVIDERS: Emergency Provider Nurse Practitioner Family; PCP Family Medicine
DX: J01.90 Acute sinusitis, unspecified (principal); R09.81 Nasal congestion; R05.9 Cough, unspecified; R07.0 Pain in throat; R63.8 Other symptoms and signs concerning food and fluid intake
CPT/HCPCS: 99212; G0381